=== PATIENT | female | born 1995 | race American Indian/Alaskan Native ===

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

== ENCOUNTER 2020-09-07 06:41 | Emergency (ER) | payer SELFPAY ==
--- NOTE | 2020-09-07 08:00 | Emergency Department Report ---
HPI - General Chief Complaint: Allergic Reaction Time Seen by Provider: 09/07/20 07:49 ED Past Medical Hx - Past Medical History Previous Medical History?: No - Surgical History Past Surgical History?: No - Social History Smoking Status: Never Smoker Substance Use Type: None ED Review of Systems ROS: Stated complaint: ALLERGIC REACTION/HIVES Other details as noted in HPI Physical Exam - Physical Exam Vital Signs: Vital Signs 09/07/20 07:13 Temperature 98.3 F Pulse Rate 88 Respiratory 16 Rate Blood Pressure 121/66 [Right] O2 Sat by Pulse 99 Oximetry ED Course Vital Signs 09/07/20 07:13 Temperature 98.3 F Pulse Rate 88 Respiratory 16 Rate Blood Pressure 121/66 [Right] O2 Sat by Pulse 99 Oximetry Critical care attestation.: If time is entered above; I have spent that time in minutes in the direct care of this critically ill patient, excluding procedure time. ED Disposition Condition: Stable
--- NOTE | 2020-09-07 08:05 | Emergency Department Report ---
- General Chief complaint: Allergic Reaction Stated complaint: ALLERGIC REACTION/HIVES Time Seen by Provider: 09/07/20 07:49 Source: patient Mode of arrival: Ambulatory Limitations: No Limitations - History of Present Illness Initial comments: 25-year-old female presents to the ER today with complaints of hives. Patient states that this morning around 4 AM she broke out in hives diffusely all over her body. Patient states that she has been having recurrent breakouts of hives over the past few months. She states that she is not exactly sure why. She has not followed up with the primary care doctor or seen an [facility] for it. She denies any obvious triggers. He states that when she breaks out she typically takes Benadryl which mainly puts her to sleep but does sometimes help with itching and hives. She states that she did not take any Benadryl this morning. She also reports some swelling in her eyes and around her lips this morning. She denies any tongue or throat swelling. She denies any cough or wheezing or difficulty breathing. She states that she has an allergy to lobster. She denies any intake of any lobster products or any other shellfish recently. complaint: rash, other (Hives) -: Sudden (4 am this morning ) Location: generalized - Related Data Previous Rx's Medication Instructions Recorded Last Taken Type Famotidine [Pepcid] 20 mg PO BID #10 tablet 09/07/20 Unknown Rx hydrOXYzine HCL [Atarax] 25 mg PO Q6HR PRN #30 tablet 09/07/20 Unknown Rx predniSONE [Deltasone] 40 mg PO QDAY #10 tab 09/07/20 Unknown Rx Allergies Allergy/AdvReac Type Severity Reaction Status Date / Time shellfish derived Allergy Swelling Verified 11/02/16 01:50 Abscess Boil HPI - HPI Chief Complaint: Allergic Reaction Stated Complaint: ALLERGIC REACTION/HIVES Time Seen by Provider: 09/07/20 07:49 Home Medications: Previous Rx's Medication Instructions Recorded Last Taken Type Famotidine [Pepcid] 20 mg PO BID #10 tablet 09/07/20 Unknown Rx hydrOXYzine HCL [Atarax] 25 mg PO Q6HR PRN #30 tablet 09/07/20 Unknown Rx predniSONE [Deltasone] 40 mg PO QDAY #10 tab 09/07/20 Unknown Rx Allergies/Adverse Reactions: Allergies Allergy/AdvReac Type Severity Reaction Status Date / Time shellfish derived Allergy Swelling Verified 11/02/16 01:50 ED Review of Systems ROS: Stated complaint: ALLERGIC REACTION/HIVES Other details as noted in HPI Comment: All other systems reviewed and negative Constitutional: denies: chills, fever Eyes: denies: eye pain, eye discharge, vision change ENT: denies: ear pain, throat pain, dental pain, hearing loss, epistaxis, congestion Respiratory: denies: cough, orthopnea, shortness of breath, SOB with exertion, SOB at rest, stridor, wheezing Cardiovascular: denies: chest pain, palpitations, dyspnea on exertion, orthopnea, edema, syncope, paroxysmal nocturnal dyspnea Gastrointestinal: denies: abdominal pain, nausea, vomiting, diarrhea, constipation, hematemesis, hematochezia Genitourinary: denies: urgency, dysuria, frequency, hematuria, discharge, abnormal menses, dyspareunia Musculoskeletal: denies: back pain, joint swelling, arthralgia Skin: rash, pruritus. denies: lesions, change in color, change in hair/nails Neurological: denies: headache, weakness, numbness, paresthesias, confusion, abnormal gait, vertigo Psychiatric: denies: anxiety, depression, auditory hallucinations, visual hallucinations, homicidal thoughts, suicidal thoughts Hematological/Lymphatic: denies: easy bleeding, easy bruising, swollen glands ED Past Medical Hx - Past Medical History Previous Medical History?: No - Surgical History Past Surgical History?: No - Social History Smoking Status: Never Smoker Substance Use Type: None - Medications Home Medications: Home Medications Medication Instructions Recorded Confirmed Last Taken Type Famotidine [Pepcid] 20 mg PO BID #10 tablet 09/07/20 Unknown Rx hydrOXYzine HCL [Atarax] 25 mg PO Q6HR PRN #30 tablet 09/07/20 Unknown Rx predniSONE [Deltasone] 40 mg PO QDAY #10 tab 09/07/20 Unknown Rx ED Physical Exam - General Limitations: No Limitations General appearance: alert, in no apparent distress - Head Head exam: Present: atraumatic, normocephalic, normal inspection - Eye Eye exam: Present: normal appearance, PERRL, EOMI Pupils: Present: normal accommodation - ENT ENT exam: Present: normal exam, normal orophraynx, mucous membranes moist - Neck Neck exam: Present: normal inspection, full ROM - Respiratory Respiratory exam: Present: normal lung sounds bilaterally. Absent: respiratory distress, wheezes, rales, rhonchi - Cardiovascular Cardiovascular Exam: Present: regular rate, normal rhythm, normal heart sounds - GI/Abdominal GI/Abdominal exam: Present: soft. Absent: distended, tenderness, guarding, rebound - Neurological Exam Neurological exam: Present: alert, oriented X3, CN II-XII intact, normal gait - Psychiatric Psychiatric exam: Present: normal affect, normal mood - Skin Skin exam: Present: urticaria (mild urticarial rash noted right flank area) ED Course Vital Signs 09/07/20 09/07/20 07:13 08:43 Temperature 98.3 F Pulse Rate 88 88 Respiratory 16 16 Rate Blood Pressure 121/66 122/88 [Right] O2 Sat by Pulse 99 100 Oximetry ED Medical Decision Making - Medical Decision Making Pt is well appearing, not toxic and no in any acute pain or respiratory distress. She is well hydrated. She is neurologically intact with normal gait. She has not facial, tongue or throat swelling. She is tolerating her secretions well. She does not have stridor, wheezing rales or rhonchi's on exam. She has a mild urticarial rash to her right flank area but otherwise skin exam normal. Her vital signs are stable. Patient will be discharged home with a prescription for Atarax, prednisone and Pepcid but informed patient that she should follow- up with a [employer] to figure out was causing her to have these recurrent urticarial rash. Patient expressed understanding of instructions and agree with plan. Patient was stable at time of discharge Critical care attestation.: If time is entered above; I have spent that time in minutes in the direct care of this critically ill patient, excluding procedure time. ED Disposition Clinical Impression: Recurrent urticaria Disposition: DC-01 TO HOME OR SELFCARE Is pt being admited?: No Does the pt Need Aspirin: No Condition: Stable Instructions: Hives Additional Instructions: Take the prednisone, atarax and the pepcid as prescribed. Use the epi pen only in severe cases (throat swelling, tongue swelling, difficulty breathing, wheezing) as discussed. It is also important that you follow-up with the primary care doctor listed on your discharge instruction for referral to [facility] to do further testing as to the cause of your recurrent urticaria/hives. Return to the ER if your symptoms changes or worsens in any way. Prescriptions: hydrOXYzine HCL [Atarax] 25 mg PO Q6HR PRN #30 tablet PRN Reason: Itching predniSONE [Deltasone] 40 mg PO QDAY #10 tab Famotidine [Pepcid] 20 mg PO BID #10 tablet Referrals: MAULIK KINCAID MD [Staff Physician] - 3-5 Days (Primary care physician) Time of Disposition: 08:04
[2020-09-07 08:44] VITALS: BP 122/88
== END 2020-09-07 08:43 | disposition home or self-care (01) ==
LOC: ED 06:41
DX: L50.8 Other urticaria (principal); Z79.899 Other long term (current) drug therapy; Z91.013 Allergy to seafood
CPT/HCPCS: 99282